=== PATIENT | female | born 1975 | race Caucasian/White ===

== ENCOUNTER 2017-01-20 09:57 | Emergency (ER) | payer OTHER ==
[~2017-01-20] VITALS: Ht 170.2 cm; Wt 92.0 kg
[~2017-01-20 09:57] MED LIST: ALPR0.5T6 PO; AMLO5TAB2 PO; ESCI20TA PO
[2017-01-20 09:59] VITALS: BP 107/63
[2017-01-20] MEDS ORDERED: ZIPRASIDONE 20 MG INJ IM ONE ×2 (10:50→11:00)
[2017-01-20 11:22] LABS: DAU SCREEN DISCLAIMER
[2017-01-20 11:28] LABS: ASPARTATE AMINO TRANSFERASE 105 U/L (15-37); BLOOD UREA NITROGEN 11 mg/dL (7-18)
[2017-01-20 11:33] LABS: ACETAMINOPHEN < 2 mcg/mL (10-30)
== END 2017-01-20 13:10 | disposition home or self-care (01) ==
LOC: ED 11:27
DX: G31.2 Degeneration of nervous system due to alcohol (principal); I10 Essential (primary) hypertension
CPT/HCPCS: 36415; 80053; 80307; 80329; 82550; 85025; 93005; 96372; 99285; J3486; G0480

== ENCOUNTER 2018-07-11 10:24 | Inpatient (IN) | payer OTHER ==
[~2018-07-11] VITALS: Ht 170.2 cm; Wt 109.6 kg
[~2018-07-11 10:24] MED LIST changes: +AMLO-150 PO; -AMLO5TAB2 PO
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
[2018-07-11] MEDS ORDERED: SODIUM CHLORIDE 0.9% 1,000 ML IV ONE (10:37)
[2018-07-11] MEDS ORDERED: PLEASE ENTER HEIGHT AND WEIGHT MC SCH (11:00)
--- NOTE | 2018-07-11 11:10 | NUR ---
PT REMOVED 22 GAUGE IV IN LEFT WRIST STARTED BY SHANTANU. NIRMALA QUIJANO PAC AWARE.
[2018-07-11 11:14] LABS: BASOPHILS # (AUTO) 0.04 x10^3/uL (0-0.1); BASOPHILS % (AUTO) 1 % (0-1); EOSINOPHILS # (AUTO) 0.11 x10^3/uL (0-0.4); EOSINOPHILS % (AUTO) 2 % (1-7); LYMPHOCYTES # (AUTO) 1.97 x10^3/uL (1-3.4); LYMPHOCYTES % (AUTO) 30 % (22-44); MD NO; MEAN CORPUSCULAR HEMOGLOBIN 34.9 pg (27.0-34.8); MEAN CORPUSCULAR HGB CONC 33.5 g/dL (32.4-35.8); MEAN CORPUSCULAR VOLUME 104.2 fL (80-100); MEAN PLATELET VOLUME 8.2 fL (7.4-10.4); MONOCYTES % (AUTO) 6 % (2-9); NEUTROPHILS # (AUTO) 4.04 x10^3/uL (1.8-6.8); NEUTROPHILS % (AUTO) 62 % (42-75); PLATELET COUNT 199 x10^3/uL (130-400); RED BLOOD COUNT 4.25 x10^6/uL (3.82-5.3); RED CELL DISTRIBUTION WIDTH 12.8 % (9.6-15.2)
[2018-07-11 11:27] LABS: ALBUMIN 3.6 g/dL (3.4-5.0); ANION GAP 9 mmol/L (5-15); CALCIUM 8.2 mg/dL (8.5-10.1); CHLORIDE 107 mmol/L (98-107)
[2018-07-11 11:29] LABS: SALICYLATE LEVEL < 1.7 mg/dL (2.8-20.0)
[2018-07-11 11:30] LABS: ALANINE AMINOTRANSFERASE 61 U/L (12-78); ALKALINE PHOSPHATASE 146 U/L (45-117); BILIRUBIN,TOTAL 0.6 mg/dL (0.2-1.0); CREATININE 0.62 mg/dL (0.55-1.02); TOTAL PROTEIN 7.5 g/dL (6.4-8.2)
[2018-07-11] MEDS ORDERED: ONDANSETRON ODT 4 MG PO ONE (11:30)
[2018-07-11 11:31] LABS: ACETAMINOPHEN < 2 mcg/mL (10-30)
[2018-07-11] MEDS ORDERED: ONDANSETRON ODT 4 MG ONE (11:33)
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
--- NOTE | 2018-07-11 12:57 | NUR ---
pt resting in bed. continues to remove monitoring equipment. pt redirected and reoriented multiple times. monitoring equipment replaced. vss. will continue to monitor.
--- NOTE | 2018-07-11 13:51 | NUR ---
PT REQUESTING MEDICATION TO HELP WITH SLEEP. MD AWARE. NO ORDERS RECEIVED. WARM BLANKED PROVIDED. LIGHTS DIMMED. VSS.
[2018-07-11 15:17] LABS: AMPHETAMINE SCREEN, URINE Negative (Negative); BARBITURATE SCREEN, URINE Negative (Negative); BENZODIAZEPINE SCREEN, URINE Positive (Negative); CANNABINOID SCREEN, URINE Negative (Negative); COCAINE SCREEN, URINE Negative (Negative); METHADONE SCREEN, URINE Negative (Negative); OPIATE SCREEN, URINE Negative (Negative)
--- NOTE | 2018-07-11 16:10 | NUR ---
unsuccessful o2 weaning trial. pt began to desat to <85% while asleep. o2 replaced. vss. edmd aware. will continue to monitor.
[2018-07-11] MEDS ORDERED: OMEPRAZOLE PO (16:17)
[2018-07-11] MEDS ORDERED: SUCR1ORA5 PO (16:17)
[2018-07-11] MEDS ORDERED: OMEPRA (16:17)
[2018-07-11] MEDS ORDERED: SODIUM CHLORIDE 0.9%, 500ML IVBOLUS ONE (16:30)
[2018-07-11] MEDS ORDERED: BISACODYL 10 MG SUPP PR PRN (17:30)
[2018-07-11] MEDS ORDERED: ONDANSETRON 2MG/ML, 2ML IVPush PRN (17:30)
[2018-07-11] MEDS ORDERED: POLYETHYLENE GLYCOL 17 GM PACKET PO PRN (17:30)
[2018-07-11] MEDS ORDERED: hydrALAzine 20 MG/ML, 1ML IVPush PRN (17:30)
[2018-07-11] MEDS ORDERED: DOCUSATE 100 MG CAPSULE PO PRN (17:30)
--- NOTE | 2018-07-11 17:30 | NUR ---
[facility] STATES SITTER WILL BE AVAILABLE AT 1815 TO GO WITH PATIENT UP TO CARD TELE FLOOR
--- NOTE | 2018-07-11 17:36 | NUR ---
BREAK RN: PT CURRENTLY SLEEPING ON [employer]. NAD NOTED. PT AWAKENS EASILY TO NOISE. PT AWARE THAT WE ARE WAITING FOR ADMISSION. PT DENIES PAIN/NEEDS AT THIS TIME. PT ON CONT BP, CARDIAC AND O2 MONITORS. CALL LIGHT WITHIN REACH. WILL CONT TO MONITOR PT.
--- NOTE | 2018-07-11 18:30 | NUR ---
PT RESTING IN GURNEY IN NAD. VSS. SITTER OBSERVING PT. VISIBLE RISE AND FALL OF CHEST OBSERVED.
[2018-07-11 19:44] VITALS: BP 106/71
--- NOTE | 2018-07-11 20:01 | NUR ---
PT BELONGINGS TAKEN OUT OF ER SECURITY LOCKER AND HAND DELIVERED BY THIS RN TO MALI WYMAN ON TELEMETRY.
[2018-07-11] MEDS: SODIUM CHLORIDE 0.9% 1,000 ML IV SCH (21:44)
[2018-07-11] MEDS: ENOXAPARIN 40 MG/0.4 ML SQ SCH (21:52)
[2018-07-12 01:10] VITALS: BP 104/69
[2018-07-12] MEDS ORDERED: LORazepam 0.5MG TABLET PO PRN (03:00)
[2018-07-12] MEDS ORDERED: LORazepam 2 MG/ML, 1ML IV PRN ×5 (03:00)
[2018-07-12] MEDS ORDERED: LORazepam 1MG TABLET PO PRN ×4 (03:00)
[2018-07-12 05:14] LABS: BASOPHILS # (AUTO) 0.19 x10^3/uL (0-0.1); BASOPHILS % (AUTO) 3 % (0-1); EOSINOPHILS # (AUTO) 0.15 x10^3/uL (0-0.4); EOSINOPHILS % (AUTO) 2 % (1-7); LYMPHOCYTES # (AUTO) 2.29 x10^3/uL (1-3.4); LYMPHOCYTES % (AUTO) 33 % (22-44); MD NO; MEAN CORPUSCULAR HEMOGLOBIN 35.3 pg (27.0-34.8); MEAN CORPUSCULAR HGB CONC 33.8 g/dL (32.4-35.8); MEAN CORPUSCULAR VOLUME 104.6 fL (80-100); MEAN PLATELET VOLUME 8.7 fL (7.4-10.4); MONOCYTES # (AUTO) 0.55 x10^3/uL (0.2-0.8); MONOCYTES % (AUTO) 8 % (2-9); NEUTROPHILS # (AUTO) 3.75 x10^3/uL (1.8-6.8); NEUTROPHILS % (AUTO) 54 % (42-75); PLATELET COUNT 172 x10^3/uL (130-400); RED BLOOD COUNT 3.91 x10^6/uL (3.82-5.3); RED CELL DISTRIBUTION WIDTH 13.1 % (9.6-15.2)
[2018-07-12 05:19] LABS: ALBUMIN 3.1 g/dL (3.4-5.0); ANION GAP 7 mmol/L (5-15); CALCIUM 7.7 mg/dL (8.5-10.1); CHLORIDE 108 mmol/L (98-107)
[2018-07-12 05:23] LABS: ALANINE AMINOTRANSFERASE 50 U/L (12-78); ALKALINE PHOSPHATASE 126 U/L (45-117); BILIRUBIN,TOTAL 0.8 mg/dL (0.2-1.0); CREATININE 0.63 mg/dL (0.55-1.02); TOTAL PROTEIN 6.4 g/dL (6.4-8.2)
[2018-07-12] MEDS: SODIUM CHLORIDE 0.9% 1,000 ML IV SCH ×2 (07:13→18:21)
[2018-07-12 08:00] VITALS: BP 102/68
[2018-07-12] MEDS: SUCRALFATE 1 GM/10 ML UDC PO SCH (08:54)
[2018-07-12] MEDS: AMLODIPINE 5 MG TABLET PO SCH (08:55)
[2018-07-12] MEDS: CITALOPRAM 20 MG TABLET PO SCH (08:56)
[2018-07-12 13:56] LABS: HEMOGLOBIN A1C 4.9 % (4.2-6.3)
[2018-07-12 15:11] VITALS: BP 101/68
[2018-07-12] MEDS: ENOXAPARIN 40 MG/0.4 ML SQ SCH (17:06)
[2018-07-12] MEDS: LORazepam 2 MG/ML, 1ML IVPush PRN ×2 (18:19→21:14)
[2018-07-12 20:02] VITALS: BP 101/64
[2018-07-12] MEDS: THIAMINE 100MG TABLET PO SCH (21:14)
[2018-07-13 01:42] VITALS: BP 102/66
[2018-07-13] MEDS: LORazepam 2 MG/ML, 1ML IVPush PRN ×2 (03:16→04:25)
[2018-07-13] MEDS: SODIUM CHLORIDE 0.9% 1,000 ML IV SCH (04:28)
[2018-07-13 05:32] LABS: BASOPHILS # (AUTO) 0.04 x10^3/uL (0-0.1); BASOPHILS % (AUTO) 1 % (0-1); EOSINOPHILS # (AUTO) 0.13 x10^3/uL (0-0.4); EOSINOPHILS % (AUTO) 2 % (1-7); LYMPHOCYTES # (AUTO) 1.78 x10^3/uL (1-3.4); LYMPHOCYTES % (AUTO) 32 % (22-44); MD NO; MEAN CORPUSCULAR HEMOGLOBIN 35.5 pg (27.0-34.8); MEAN CORPUSCULAR HGB CONC 33.9 g/dL (32.4-35.8); MEAN CORPUSCULAR VOLUME 104.7 fL (80-100); MEAN PLATELET VOLUME 8.6 fL (7.4-10.4); MONOCYTES # (AUTO) 0.43 x10^3/uL (0.2-0.8); MONOCYTES % (AUTO) 8 % (2-9); NEUTROPHILS # (AUTO) 3.29 x10^3/uL (1.8-6.8); NEUTROPHILS % (AUTO) 58 % (42-75); PLATELET COUNT 142 x10^3/uL (130-400); RED BLOOD COUNT 3.87 x10^6/uL (3.82-5.3); RED CELL DISTRIBUTION WIDTH 12.7 % (9.6-15.2)
[2018-07-13 05:44] LABS: CHLORIDE 109 mmol/L (98-107)
[2018-07-13 05:49] LABS: ALANINE AMINOTRANSFERASE 52 U/L (12-78); ALKALINE PHOSPHATASE 119 U/L (45-117); ANION GAP 8 mmol/L (5-15); BILIRUBIN,TOTAL 1.1 mg/dL (0.2-1.0); CREATININE 0.53 mg/dL (0.55-1.02); TOTAL PROTEIN 6.3 g/dL (6.4-8.2)
[2018-07-13 07:10] VITALS: BP 106/71
[2018-07-13] MEDS: AMLODIPINE 5 MG TABLET PO SCH (09:00)
[2018-07-13] MEDS: SUCRALFATE 1 GM/10 ML UDC PO SCH (09:00)
[2018-07-13] MEDS: ACETAMINOPHEN 325 MG TABLET PO PRN (10:35)
[2018-07-13] MEDS: CITALOPRAM 20 MG TABLET PO SCH (10:35)
[2018-07-13] MEDS: THIAMINE 100MG TABLET PO SCH ×2 (10:36→22:02)
[2018-07-13] MEDS: MULTIVITAMIN 1 TABLET PO SCH (10:36)
[2018-07-13] MEDS ORDERED: OMEPRAZOLE 20 MG CAPSULE.DR PO ONE (12:30)
[2018-07-13 14:00] VITALS: BP 99/65
[2018-07-13] MEDS: ENOXAPARIN 40 MG/0.4 ML SQ SCH (17:30)
[2018-07-13 20:22] VITALS: BP 102/68
[2018-07-13] MEDS: MELATONIN 5 MG TABLET PO SCH (22:02)
[2018-07-13] MEDS: OMEPRAZOLE 20 MG CAPSULE.DR PO SCH (22:02)
[2018-07-14 01:05] VITALS: BP 120/81
[2018-07-14] MEDS: ACETAMINOPHEN 325 MG TABLET PO PRN ×2 (04:59→20:29)
[2018-07-14] MEDS: OMEPRAZOLE 20 MG CAPSULE.DR PO SCH ×2 (04:59→20:16)
[2018-07-14 07:23] VITALS: BP 139/83
[2018-07-14] MEDS: THIAMINE 100MG TABLET PO SCH ×2 (09:04→20:16)
[2018-07-14] MEDS: CITALOPRAM 20 MG TABLET PO SCH (09:04)
[2018-07-14] MEDS: MULTIVITAMIN 1 TABLET PO SCH (09:04)
[2018-07-14] MEDS: AMLODIPINE 5 MG TABLET PO SCH (09:04)
[2018-07-14 14:29] VITALS: BP 117/75
[2018-07-14] MEDS: ENOXAPARIN 40 MG/0.4 ML SQ SCH (17:30)
[2018-07-14 19:35] VITALS: BP 127/83
[2018-07-14] MEDS: MELATONIN 5 MG TABLET PO SCH (20:16)
[2018-07-15 02:34] VITALS: BP 106/67
[2018-07-15] MEDS: OMEPRAZOLE 20 MG CAPSULE.DR PO SCH (05:31)
[2018-07-15] MEDS: ACETAMINOPHEN 325 MG TABLET PO PRN (05:31)
[2018-07-15 06:43] VITALS: BP 126/76
[2018-07-15] MEDS: CITALOPRAM 20 MG TABLET PO SCH (08:46)
[2018-07-15] MEDS: MULTIVITAMIN 1 TABLET PO SCH (08:46)
[2018-07-15] MEDS: THIAMINE 100MG TABLET PO SCH (08:46)
[2018-07-15] MEDS: AMLODIPINE 5 MG TABLET PO SCH (08:47)
[2018-07-15 13:29] VITALS: BP 121/79
== END 2018-07-15 14:05 | DRG 917 ==
LOC: ED 12:38 → EDIP 17:09 → 5SO 19:39 → 3NE 07-12 17:41
PROVIDERS: ADMIT Internal Medicine; ATTEND Internal Medicine
PROC: 5A1935Z Respiratory Ventilation, Less than 24 Consecutive Hours (ICD-10-PCS; principal; 2018-07-11)
DX: T42.4X2A Poisoning by benzodiazepines, intentional self-harm, initial encounter (principal); J96.00 Acute respiratory failure, unspecified whether with hypoxia or hypercapnia; F10.239 Alcohol dependence with withdrawal, unspecified; D75.89 Other specified diseases of blood and blood-forming organs; E11.65 Type 2 diabetes mellitus with hyperglycemia; F32.9 Major depressive disorder, single episode, unspecified; F41.9 Anxiety disorder, unspecified; I11.9 Hypertensive heart disease without heart failure; Z82.49 Family history of ischemic heart disease and other diseases of the circulatory system
CPT/HCPCS: 36415; 80053; 80307; 80329; 81025; 83036; 83735; 84100; 85025; 93005; 96360; G0378; J1650; Q0162; G0480; J2060; J7030; J7040

== ENCOUNTER 2018-07-15 14:05 | Inpatient (IN) | payer OTHER ==
[~2018-07-15] VITALS: Ht 170.2 cm; Wt 108.9 kg
[~2018-07-15 14:05] MED LIST changes: +OMEPRA; +OMEPRAZOLE PO; +SUCR1ORA5 PO
[2018-07-15] MEDS ORDERED: POLYETHYLENE GLYCOL 17 GM PACKET PO PRN (14:30)
[2018-07-15] MEDS ORDERED: BISACODYL 10 MG SUPP PR PRN (14:30)
[2018-07-15 16:00] VITALS: BP 121/69
[2018-07-15 16:26] LABS: HCT (SEDRATE) 46.4 % (34.6-47.8)
[2018-07-15 16:58] VITALS: BP 121/69
[2018-07-15 17:03] LABS: CHOL/HDL RATIO 5.2; CHOLESTEROL, TOTAL 241 mg/dL (140-239); FREE T4 (FREE THYROXINE) 1.27 ng/dL (0.76-1.46); HDL CHOL % 19 % (28-40); HDL CHOLESTEROL (DIRECT) 46 mg/dL (40-60); LDL CHOLESTEROL,CALCULATED 165 mg/dL (54-169); LDL/HDL RATIO 3.6 (0.5-3.0); TRIGLYCERIDES 151 mg/dL (50-200); VLDL CHOLESTEROL 30 mg/dL (0-25)
[2018-07-15 17:06] LABS: FOLATE LEVEL > 20.0 ng/mL (3.1-17.5)
[2018-07-15 19:45] VITALS: BP 121/82
[2018-07-15 20:21] LABS: CULTURE INDICATED? YES; MICROSCOPIC INDICATED
[2018-07-15] MEDS: ACETAMINOPHEN 325 MG TABLET PO PRN (21:46)
[2018-07-16 07:53] VITALS: BP 97/63
[2018-07-16] MEDS: SENNA/DOCUSATE TABLET PO SCH (09:51)
[2018-07-16] MEDS: ACETAMINOPHEN 325 MG TABLET PO PRN ×2 (12:47→21:24)
[2018-07-16 19:57] VITALS: BP 123/80
[2018-07-16] MEDS: OMEPRAZOLE 20 MG CAPSULE.DR PO SCH (21:00)
[2018-07-16] MEDS: DOXEPIN 25 MG CAPSULE PO SCH (21:24)
[2018-07-16] MEDS: ACAMPROSATE 333 MG TABLET.DR PO SCH (21:24)
[2018-07-16] MEDS: HYDROXYZINE PAMOATE 50MG CAP PO PRN (21:24)
[2018-07-17] MEDS: OMEPRAZOLE 20 MG CAPSULE.DR PO SCH (05:38)
[2018-07-17 07:25] VITALS: BP 101/65
[2018-07-17] MEDS: AMLODIPINE 10 MG TAB PO SCH (08:55)
[2018-07-17] MEDS: ACAMPROSATE 333 MG TABLET.DR PO SCH ×3 (08:55→20:55)
[2018-07-17] MEDS ORDERED: FLUOXETINE HCL 20 MG CAPSULE PO SCH (09:00)
[2018-07-17] MEDS: SENNA/DOCUSATE TABLET PO SCH (09:00)
[2018-07-17] MEDS ORDERED: ACAM333T7 PO (17:56)
[2018-07-17] MEDS ORDERED: DOXE25CA PO (17:56)
[2018-07-17 19:28] VITALS: BP 99/66
[2018-07-17] MEDS: DOXEPIN 25 MG CAPSULE PO SCH (20:55)
[2018-07-17] MEDS: HYDROXYZINE PAMOATE 50MG CAP PO PRN (20:55)
[2018-07-18] MEDS: OMEPRAZOLE 20 MG CAPSULE.DR PO SCH (05:34)
[2018-07-18 07:13] VITALS: BP 88/58
[2018-07-18 08:34] VITALS: BP 91/66
[2018-07-18] MEDS: ACAMPROSATE 333 MG TABLET.DR PO SCH (08:36)
[2018-07-18] MEDS: AMLODIPINE 10 MG TAB PO SCH (08:36)
[2018-07-18] MEDS: SENNA/DOCUSATE TABLET PO SCH (08:36)
[2018-07-20] MEDS ORDERED: ACAMPROSATE 333 MG TABLET.DR PO SCH (09:00)
== END 2018-07-18 12:47 | disposition home or self-care (01) | DRG 918 ==
LOC: 3E 15:20
PROVIDERS: ADMIT Psychiatry & Neurology Psychosomatic Medicine; ATTEND Psychiatry & Neurology Psychosomatic Medicine
DX: T42.4X2A Poisoning by benzodiazepines, intentional self-harm, initial encounter (principal); F33.2 Major depressive disorder, recurrent severe without psychotic features; E11.9 Type 2 diabetes mellitus without complications; I11.9 Hypertensive heart disease without heart failure; F10.10 Alcohol abuse, uncomplicated; F41.1 Generalized anxiety disorder; G47.00 Insomnia, unspecified; K21.9 Gastro-esophageal reflux disease without esophagitis; Y92.89 Other specified places as the place of occurrence of the external cause; Z91.018 Allergy to other foods
CPT/HCPCS: 36415; 71045; 80061; 81001; 82140; 82607; 82746; 84439; 84443; 85651; 86592; 87086; 93005

== ENCOUNTER 2018-08-15 15:16 | Emergency (ER) | payer OTHER ==
[~2018-08-15] VITALS: Ht 170.2 cm; Wt 106.8 kg
[~2018-08-15 15:16] MED LIST changes: +ACAM333T7 PO; +DOXE25CA PO
--- NOTE | 2018-08-15 15:47 | NUR ---
PT AMBULATORY TO ROOM FROM LOBBY
[2018-08-15] MEDS ORDERED: SODIUM CHLORIDE FLUSH 10ML SYR IVF ONE (16:00)
[2018-08-15] MEDS ORDERED: QUET25TA5 PO (16:18)
[2018-08-15] MEDS ORDERED: HYDR10TA4 PO (16:20)
[2018-08-15] MEDS ORDERED: KETOROLAC 30 MG/1 ML ONE (16:57)
[2018-08-15] MEDS ORDERED: KETOROLAC 30 MG/1 ML IM ONE (17:00)
--- NOTE | 2018-08-15 17:00 | NUR ---
PT TO CT VIA [facility].
[2018-08-15 17:03] LABS: BASOPHILS # (AUTO) 0.07 x10^3/uL (0-0.1); BASOPHILS % (AUTO) 1 % (0-1); EOSINOPHILS # (AUTO) 0.06 x10^3/uL (0-0.4); EOSINOPHILS % (AUTO) 1 % (1-7); LYMPHOCYTES # (AUTO) 1.82 x10^3/uL (1-3.4); LYMPHOCYTES % (AUTO) 34 % (22-44); MD NO; MEAN CORPUSCULAR HEMOGLOBIN 33.1 pg (27.0-34.8); MEAN CORPUSCULAR VOLUME 100.5 fL (80-100); MEAN PLATELET VOLUME 9.9 fL (7.4-10.4); MONOCYTES # (AUTO) 0.32 x10^3/uL (0.2-0.8); MONOCYTES % (AUTO) 6 % (2-9); NEUTROPHILS % (AUTO) 58 % (42-75); PLATELET COUNT 156 x10^3/uL (130-400); RED BLOOD COUNT 4.25 x10^6/uL (3.82-5.3); RED CELL DISTRIBUTION WIDTH 12.3 % (9.6-15.2)
[2018-08-15 17:04] LABS: HCT (SEDRATE) 42.7 % (34.6-47.8)
[2018-08-15 17:12] LABS: ALBUMIN 3.4 g/dL (3.4-5.0); ANION GAP 6 mmol/L (5-15); CALCIUM 8.6 mg/dL (8.5-10.1); CHLORIDE 108 mmol/L (98-107); CREATININE 0.67 mg/dL (0.55-1.02)
--- NOTE | 2018-08-15 17:47 | NUR ---
TASK RN: PT SITTING UP IN GURNEY W/ EYES CLOSED. NAD NOTED. PT UPDATED TO POC (RECHECK/DISPO) AND DEMONSTRATES UNDERSTANDING.
[2018-08-15] MEDS ORDERED: METOCLOPRAMIDE 10MG TABLET ONE (18:14)
[2018-08-15] MEDS ORDERED: METOCLOPRAMIDE 5 MG/ML, 2ML IVPush ONE (18:30)
[2018-08-15] MEDS ORDERED: PROMETHAZINE 25 MG/ML, 1ML ONE (18:36)
[2018-08-15 18:42] VITALS: BP 121/71
[2018-08-15] MEDS ORDERED: PROMETHAZINE 25 MG/ML, 1ML IM ONE (19:00)
--- NOTE | 2018-08-15 19:34 | NUR ---
Patient/Caregiver given discharge instructions and they have confirmed that they understand the instructions. Patient ambulatory with steady gait.
== END 2018-08-15 19:35 | disposition home or self-care (01) ==
LOC: ED 18:33
DX: G44.52 New daily persistent headache (NDPH) (principal); G89.29 Other chronic pain; I10 Essential (primary) hypertension
CPT/HCPCS: 36415; 70450; 80048; 82040; 85025; 85651; 96372; 99284; J1885; J2550

== ENCOUNTER 2018-09-05 17:44 | Observation (INO) | payer OTHER ==
[~2018-09-05] VITALS: Ht 170.2 cm; Wt 108.0 kg
[~2018-09-05 17:44] MED LIST changes: +HYDR10TA4 PO; +QUET25TA5 PO
--- NOTE | 2018-09-05 17:45 | NUR ---
BIB [facility], FAMILY/FRIENDS CALLED HANNAH SILVERIO PT WAS TEXTING THEM SI/SA THREATS, UPON ARRIVAL SHANTANU WITNESSED PT TAKE A "HANDFUL" OF PILLS AND SHE STATED SHE TOOK A "BUNCH" OF LEXARO AND DOXEPIN, PT STATES HERE SHE TOOK ASA, LEXAPRO, ETOH, THEN STATES SHE DID NOT TAKE ANYTING. ALL BELONGINGS REMOVED AND 1 BAG PLACED IN PSYCH LOCKER. PT UNABLE TO URINATE AT THIS TIME. SITTER AT BEDSIDE. PT VERBALIZING WANTING TO LEAVE. PT EDUCATED SHE IS ON LEGAL HOLD AND WE WILL NEED TO KEEP HER HERE. VERBALIZES UNDERSTANDING. MD AT BEDSIDE
[2018-09-05] MEDS ORDERED: SODIUM CHLORIDE FLUSH 10ML SYR IVF ONE (18:30)
[2018-09-05 18:42] LABS: BASOPHILS # (AUTO) 0.05 x10^3/uL (0-0.1); BASOPHILS % (AUTO) 1 % (0-1); EOSINOPHILS # (AUTO) 0.06 x10^3/uL (0-0.4); EOSINOPHILS % (AUTO) 1 % (1-7); LYMPHOCYTES # (AUTO) 2.39 x10^3/uL (1-3.4); LYMPHOCYTES % (AUTO) 47 % (22-44); MD NO; MEAN CORPUSCULAR HEMOGLOBIN 34.2 pg (27.0-34.8); MEAN CORPUSCULAR VOLUME 100.6 fL (80-100); MEAN PLATELET VOLUME 7.2 fL (7.4-10.4); MONOCYTES # (AUTO) 0.36 x10^3/uL (0.2-0.8); MONOCYTES % (AUTO) 7 % (2-9); NEUTROPHILS # (AUTO) 2.23 x10^3/uL (1.8-6.8); NEUTROPHILS % (AUTO) 44 % (42-75); PLATELET COUNT 155 x10^3/uL (130-400); RED BLOOD COUNT 4.49 x10^6/uL (3.82-5.3); RED CELL DISTRIBUTION WIDTH 14.1 % (9.6-15.2)
[2018-09-05 18:51] LABS: ALBUMIN 3.5 g/dL (3.4-5.0); ANION GAP 11 mmol/L (5-15); CALCIUM 8.3 mg/dL (8.5-10.1); CHLORIDE 106 mmol/L (98-107)
[2018-09-05 18:52] LABS: SALICYLATE LEVEL < 1.7 mg/dL (2.8-20.0)
[2018-09-05 18:57] LABS: ACETAMINOPHEN < 2 mcg/mL (10-30); ALANINE AMINOTRANSFERASE 42 U/L (12-78); ALKALINE PHOSPHATASE 144 U/L (45-117); BILIRUBIN,TOTAL 0.9 mg/dL (0.2-1.0); CREATININE 0.84 mg/dL (0.55-1.02); TOTAL PROTEIN 7.2 g/dL (6.4-8.2)
--- NOTE | 2018-09-05 19:45 | NUR ---
REPORT FROM DEANGELO WYMAN. PT GIVEN A MEAL TRAY. UA WALKED TO LAB. PT COMPLAINING OF HEARTBURN. AWARE AND WILL ORDER GI COCKTAIL. SITTER IN VIEW OF PT.
[2018-09-05] MEDS ORDERED: MAALOX/HYOSCYAMINE/LIDOCAINE 45 ML BTL ONE (19:49)
[2018-09-05 19:53] LABS: AMPHETAMINE SCREEN, URINE Negative (Negative); BARBITURATE SCREEN, URINE Negative (Negative); BENZODIAZEPINE SCREEN, URINE Positive (Negative); CANNABINOID SCREEN, URINE Negative (Negative); COCAINE SCREEN, URINE Negative (Negative); METHADONE SCREEN, URINE Negative (Negative); OPIATE SCREEN, URINE Negative (Negative)
[2018-09-05] MEDS ORDERED: MAALOX/HYOSCYAMINE/LIDOCAINE 45 ML BTL PO ONE (20:00)
--- NOTE | 2018-09-05 20:30 | NUR ---
PT MEDICATED AND IS SLEEPING IN NAD. SITTER IN VIEW OF PT.
--- NOTE | 2018-09-05 21:42 | NUR ---
PT RESTING WITH NO NEEDS AT THIS TIME. EVEN RISE AND FALL OF CHEST OBSERVED. SITTER IN VIEW OF PT
--- NOTE | 2018-09-05 22:34 | NUR ---
PT SLEEPING IN NAD. SITTER IN VIEW OF PT,
--- NOTE | 2018-09-05 23:07 | NUR ---
Katerine pinto in ED - 09/05/18 at 2331 by JULIANA pt up to the bathroom. vss. Pt rebreathalyzed 0.087
--- NOTE | 2018-09-05 23:31 | NUR ---
PT REBREATHALYZED 0.08. VSS. PT BACK TO BED. PT UPDATED ON POC. SITTER IN VIEW OF PT.
[2018-09-06] MEDS ORDERED: hydrOXyzine 10MG TABLET PO PRN (00:30)
--- NOTE | 2018-09-06 00:45 | NUR ---
PT ASSITED TO BARTHROOM AND GIVEN WATER. PT HAS NO NEEDS AT THIS TIME. SITTER IN VIEW OF PT.
[2018-09-06] MEDS: THIAMINE 200 MG, MVI ADULT 10 ML, FOLIC ACID 1 MG in D5%-0.9% NACL 1,000 ML IV SCH (02:28)
--- NOTE | 2018-09-06 02:28 | NUR ---
FLUIDS RUNNING. PT HAS NO OTHER NEEDS AT THIS TIME. SITER IN VIEW OF PT
[2018-09-06] MEDS ORDERED: LORazepam 2 MG/ML, 1ML IV PRN ×3 (03:00)
[2018-09-06] MEDS ORDERED: CHLORDIAZEPOXIDE 25 MG CAPSULE ONE (03:47)
[2018-09-06] MEDS: CHLORDIAZEPOXIDE 25 MG CAPSULE PO SCH ×3 (03:50→19:20)
--- NOTE | 2018-09-06 03:51 | NUR ---
PT MEDICATED. VSS. PT ASSESSED FOR CIWA. ASSESSMENT CHARTED. PT NOW SLEEPING. SITTER IN VIEW OF PT.
--- NOTE | 2018-09-06 05:10 | NUR ---
REPORT TO EARNESTINE WYMAN.
[2018-09-06 05:36] VITALS: BP 114/77
[2018-09-06] MEDS: LORazepam 2 MG/ML, 1ML IV PRN ×3 (06:17→12:48)
[2018-09-06] MEDS: OMEPRAZOLE 20 MG CAPSULE.DR PO SCH ×3 (06:17→16:58)
[2018-09-06 07:56] LABS: BASOPHILS # (AUTO) 0.08 x10^3/uL (0-0.1); BASOPHILS % (AUTO) 1 % (0-1); EOSINOPHILS # (AUTO) 0.05 x10^3/uL (0-0.4); EOSINOPHILS % (AUTO) 1 % (1-7); LYMPHOCYTES % (AUTO) 33 % (22-44); MD NO; MEAN CORPUSCULAR HEMOGLOBIN 33.6 pg (27.0-34.8); MEAN CORPUSCULAR HGB CONC 33.4 g/dL (32.4-35.8); MEAN CORPUSCULAR VOLUME 100.5 fL (80-100); MEAN PLATELET VOLUME 7.3 fL (7.4-10.4); MONOCYTES # (AUTO) 0.48 x10^3/uL (0.2-0.8); MONOCYTES % (AUTO) 8 % (2-9); NEUTROPHILS # (AUTO) 3.23 x10^3/uL (1.8-6.8); NEUTROPHILS % (AUTO) 56 % (42-75); PLATELET COUNT 135 x10^3/uL (130-400); RED BLOOD COUNT 4.14 x10^6/uL (3.82-5.3); RED CELL DISTRIBUTION WIDTH 14.8 % (9.6-15.2)
[2018-09-06 08:06] LABS: ALBUMIN 3.2 g/dL (3.4-5.0); ANION GAP 6 mmol/L (5-15); CALCIUM 7.9 mg/dL (8.5-10.1); CHLORIDE 107 mmol/L (98-107)
[2018-09-06 08:11] LABS: ALANINE AMINOTRANSFERASE 36 U/L (12-78); ALKALINE PHOSPHATASE 131 U/L (45-117); BILIRUBIN,TOTAL 1.1 mg/dL (0.2-1.0); CREATININE 0.64 mg/dL (0.55-1.02); TOTAL PROTEIN 6.4 g/dL (6.4-8.2)
[2018-09-06] MEDS: AMLODIPINE 5 MG TABLET PO SCH (08:25)
[2018-09-06] MEDS: CITALOPRAM 20 MG TABLET PO SCH (08:26)
[2018-09-06 08:57] VITALS: BP 114/77
[2018-09-06] MEDS ORDERED: CHLORDIAZEPOXIDE 25 MG CAPSULE PO ONE (11:30)
[2018-09-06 12:02] VITALS: BP 110/73
[2018-09-06 18:36] VITALS: BP 117/79
[2018-09-07] MEDS: LORazepam 2 MG/ML, 1ML IV PRN ×4 (01:17→21:17)
[2018-09-07 02:36] VITALS: BP 107/73
[2018-09-07] MEDS: THIAMINE 200 MG, MVI ADULT 10 ML, FOLIC ACID 1 MG in D5%-0.9% NACL 1,000 ML IV SCH (02:39)
[2018-09-07] MEDS: CHLORDIAZEPOXIDE 25 MG CAPSULE PO SCH ×3 (02:39→18:32)
[2018-09-07 05:10] LABS: ALBUMIN 3.2 g/dL (3.4-5.0); ANION GAP 5 mmol/L (5-15); CALCIUM 8.2 mg/dL (8.5-10.1); CHLORIDE 108 mmol/L (98-107)
[2018-09-07 05:22] LABS: BASOPHILS # (AUTO) 0.03 x10^3/uL (0-0.1); BASOPHILS % (AUTO) 1 % (0-1); EOSINOPHILS # (AUTO) 0.12 x10^3/uL (0-0.4); EOSINOPHILS % (AUTO) 3 % (1-7); LYMPHOCYTES # (AUTO) 1.61 x10^3/uL (1-3.4); LYMPHOCYTES % (AUTO) 39 % (22-44); MD NO; MEAN CORPUSCULAR HEMOGLOBIN 34.2 pg (27.0-34.8); MEAN CORPUSCULAR HGB CONC 33.9 g/dL (32.4-35.8); MEAN PLATELET VOLUME 7.8 fL (7.4-10.4); MONOCYTES # (AUTO) 0.36 x10^3/uL (0.2-0.8); MONOCYTES % (AUTO) 9 % (2-9); NEUTROPHILS # (AUTO) 2.04 x10^3/uL (1.8-6.8); NEUTROPHILS % (AUTO) 49 % (42-75); PLATELET COUNT 122 x10^3/uL (130-400); RED BLOOD COUNT 4.18 x10^6/uL (3.82-5.3); RED CELL DISTRIBUTION WIDTH 13.9 % (9.6-15.2)
[2018-09-07 05:39] LABS: ALANINE AMINOTRANSFERASE 28 U/L (12-78); ALKALINE PHOSPHATASE 119 U/L (45-117); BILIRUBIN,TOTAL 1.5 mg/dL (0.2-1.0); CREATININE 0.65 mg/dL (0.55-1.02); TOTAL PROTEIN 6.2 g/dL (6.4-8.2)
[2018-09-07 07:04] VITALS: BP 125/83
[2018-09-07] MEDS ORDERED: THIAMINE 100 MG in DEXTROSE 5% 50 ML IVPB SCH (09:00)
[2018-09-07] MEDS: THIAMINE 100MG TABLET PO SCH (10:30)
[2018-09-07] MEDS: OMEPRAZOLE 20 MG CAPSULE.DR PO SCH ×3 (10:30→17:39)
[2018-09-07] MEDS: AMLODIPINE 5 MG TABLET PO SCH (10:30)
[2018-09-07] MEDS: ESCITALOPRAM 10MG TABLET PO SCH (10:30)
[2018-09-07 12:00] VITALS: BP 124/87
[2018-09-07] MEDS: ACETAMINOPHEN 325 MG TABLET PO PRN (17:39)
[2018-09-07 18:35] VITALS: BP 118/79
[2018-09-08 01:39] VITALS: BP 110/73
[2018-09-08] MEDS: CHLORDIAZEPOXIDE 25 MG CAPSULE PO SCH ×3 (02:51→21:54)
[2018-09-08] MEDS: LORazepam 2 MG/ML, 1ML IV PRN (02:51)
[2018-09-08] MEDS: THIAMINE 200 MG, MVI ADULT 10 ML, FOLIC ACID 1 MG in D5%-0.9% NACL 1,000 ML IV SCH (02:51)
[2018-09-08 04:30] LABS: BASOPHILS # (AUTO) 0.05 x10^3/uL (0-0.1); BASOPHILS % (AUTO) 1 % (0-1); EOSINOPHILS # (AUTO) 0.12 x10^3/uL (0-0.4); EOSINOPHILS % (AUTO) 3 % (1-7); LYMPHOCYTES # (AUTO) 1.59 x10^3/uL (1-3.4); LYMPHOCYTES % (AUTO) 37 % (22-44); MD NO; MEAN CORPUSCULAR HEMOGLOBIN 34.5 pg (27.0-34.8); MEAN CORPUSCULAR HGB CONC 34.3 g/dL (32.4-35.8); MEAN CORPUSCULAR VOLUME 100.3 fL (80-100); MEAN PLATELET VOLUME 7.5 fL (7.4-10.4); MONOCYTES # (AUTO) 0.36 x10^3/uL (0.2-0.8); MONOCYTES % (AUTO) 8 % (2-9); NEUTROPHILS # (AUTO) 2.23 x10^3/uL (1.8-6.8); NEUTROPHILS % (AUTO) 51 % (42-75); PLATELET COUNT 122 x10^3/uL (130-400); RED BLOOD COUNT 4.26 x10^6/uL (3.82-5.3); RED CELL DISTRIBUTION WIDTH 14.3 % (9.6-15.2)
[2018-09-08 04:40] LABS: CALCIUM 8.5 mg/dL (8.5-10.1); CHLORIDE 109 mmol/L (98-107)
[2018-09-08 04:46] LABS: ALANINE AMINOTRANSFERASE 30 U/L (12-78); ALBUMIN 3.4 g/dL (3.4-5.0); ALKALINE PHOSPHATASE 120 U/L (45-117); ANION GAP 6 mmol/L (5-15); BILIRUBIN,TOTAL 1.3 mg/dL (0.2-1.0); CREATININE 0.62 mg/dL (0.55-1.02); TOTAL PROTEIN 6.6 g/dL (6.4-8.2)
[2018-09-08 07:15] VITALS: BP 126/86
[2018-09-08] MEDS: AMLODIPINE 5 MG TABLET PO SCH (08:59)
[2018-09-08] MEDS: OMEPRAZOLE 20 MG CAPSULE.DR PO SCH ×3 (08:59→16:00)
[2018-09-08] MEDS: THIAMINE 100MG TABLET PO SCH (08:59)
[2018-09-08] MEDS: ESCITALOPRAM 10MG TABLET PO SCH (08:59)
[2018-09-08] MEDS ORDERED: MELATONIN 3 MG TABLET PO PRN (10:30)
[2018-09-08 17:51] VITALS: BP 115/80
[2018-09-08 18:45] VITALS: BP 105/71
[2018-09-09] MEDS: THIAMINE 200 MG, MVI ADULT 10 ML, FOLIC ACID 1 MG in D5%-0.9% NACL 1,000 ML IV SCH (02:56)
[2018-09-09 02:58] VITALS: BP 109/75
[2018-09-09 04:43] LABS: ALANINE AMINOTRANSFERASE 30 U/L (12-78); ALBUMIN 3.3 g/dL (3.4-5.0); ANION GAP 7 mmol/L (5-15); CALCIUM 8.8 mg/dL (8.5-10.1); CHLORIDE 109 mmol/L (98-107); CREATININE 0.65 mg/dL (0.55-1.02)
[2018-09-09 04:45] LABS: ALKALINE PHOSPHATASE 113 U/L (45-117); BILIRUBIN,TOTAL 1.6 mg/dL (0.2-1.0); TOTAL PROTEIN 6.5 g/dL (6.4-8.2)
[2018-09-09] MEDS: OMEPRAZOLE 20 MG CAPSULE.DR PO SCH ×3 (06:28→14:49)
[2018-09-09 06:40] VITALS: BP 112/77
[2018-09-09] MEDS: AMLODIPINE 5 MG TABLET PO SCH (07:58)
[2018-09-09] MEDS: THIAMINE 100MG TABLET PO SCH (07:58)
[2018-09-09] MEDS: CHLORDIAZEPOXIDE 10 MG CAPSULE PO SCH ×3 (07:58→20:24)
[2018-09-09] MEDS: ESCITALOPRAM 10MG TABLET PO SCH (07:59)
[2018-09-09] MEDS: CHLORDIAZEPOXIDE 25 MG CAPSULE PO SCH ×2 (07:59→21:00)
[2018-09-09] MEDS: ACETAMINOPHEN 325 MG TABLET PO PRN (10:18)
[2018-09-09] MEDS ORDERED: HYDR25CA PO (10:54)
[2018-09-09] MEDS ORDERED: NORT25CA78 PO (10:54)
[2018-09-09 12:10] VITALS: BP 116/79
[2018-09-09] MEDS: HYDROXYZINE PAMOATE 25MG CAP PO SCH ×2 (14:49→20:24)
[2018-09-09 14:54] LABS: BILIRUBIN, DIRECT 0.5 mg/dL (0.1-0.2)
[2018-09-09 14:56] LABS: BILIRUBIN,INDIRECT 1.2 mg/dL (0.0-2.0); BILIRUBIN,TOTAL 1.7 mg/dL (0.2-1.0)
[2018-09-09 18:53] VITALS: BP 108/76
[2018-09-09] MEDS: NORTRIPTYLINE 10 MG CAPSULE PO SCH (20:24)
[2018-09-09] MEDS: LORazepam 2 MG/ML, 1ML IV PRN (22:26)
[2018-09-10 02:24] VITALS: BP 93/62
[2018-09-10 04:47] LABS: ALBUMIN 3.4 g/dL (3.4-5.0); ANION GAP 6 mmol/L (5-15); CALCIUM 8.6 mg/dL (8.5-10.1); CHLORIDE 108 mmol/L (98-107)
[2018-09-10 04:51] LABS: ALANINE AMINOTRANSFERASE 29 U/L (12-78); ALKALINE PHOSPHATASE 109 U/L (45-117); BILIRUBIN,TOTAL 1.6 mg/dL (0.2-1.0); CREATININE 0.66 mg/dL (0.55-1.02); TOTAL PROTEIN 6.4 g/dL (6.4-8.2)
[2018-09-10 06:42] VITALS: BP 104/70
[2018-09-10] MEDS: ESCITALOPRAM 10MG TABLET PO SCH (08:30)
[2018-09-10] MEDS: AMLODIPINE 5 MG TABLET PO SCH (08:30)
[2018-09-10] MEDS: HYDROXYZINE PAMOATE 25MG CAP PO SCH ×3 (08:30→22:45)
[2018-09-10] MEDS: OMEPRAZOLE 20 MG CAPSULE.DR PO SCH ×3 (08:30→15:41)
[2018-09-10] MEDS: CHLORDIAZEPOXIDE 10 MG CAPSULE PO SCH ×3 (08:30→22:45)
[2018-09-10] MEDS: THIAMINE 100MG TABLET PO SCH (08:30)
[2018-09-10 12:15] VITALS: BP 104/70
[2018-09-10 19:05] VITALS: BP 110/72
[2018-09-10] MEDS: NORTRIPTYLINE 10 MG CAPSULE PO SCH (21:00)
[2018-09-11 01:13] VITALS: BP 105/69
[2018-09-11 05:13] LABS: BASOPHILS # (AUTO) 0.05 x10^3/uL (0-0.1); BASOPHILS % (AUTO) 1 % (0-1); EOSINOPHILS # (AUTO) 0.17 x10^3/uL (0-0.4); EOSINOPHILS % (AUTO) 3 % (1-7); LYMPHOCYTES # (AUTO) 1.76 x10^3/uL (1-3.4); LYMPHOCYTES % (AUTO) 32 % (22-44); MD NO; MEAN CORPUSCULAR HEMOGLOBIN 34.4 pg (27.0-34.8); MEAN CORPUSCULAR HGB CONC 34.2 g/dL (32.4-35.8); MEAN CORPUSCULAR VOLUME 100.5 fL (80-100); MEAN PLATELET VOLUME 7.8 fL (7.4-10.4); MONOCYTES # (AUTO) 0.48 x10^3/uL (0.2-0.8); MONOCYTES % (AUTO) 9 % (2-9); NEUTROPHILS # (AUTO) 3.13 x10^3/uL (1.8-6.8); NEUTROPHILS % (AUTO) 56 % (42-75); PLATELET COUNT 127 x10^3/uL (130-400); RED BLOOD COUNT 4.33 x10^6/uL (3.82-5.3); RED CELL DISTRIBUTION WIDTH 14.2 % (9.6-15.2)
[2018-09-11 05:29] LABS: ALBUMIN 3.2 g/dL (3.4-5.0); ANION GAP 7 mmol/L (5-15); CALCIUM 8.4 mg/dL (8.5-10.1); CHLORIDE 107 mmol/L (98-107)
[2018-09-11 05:33] LABS: ALANINE AMINOTRANSFERASE 31 U/L (12-78); ALKALINE PHOSPHATASE 112 U/L (45-117); BILIRUBIN,TOTAL 1.4 mg/dL (0.2-1.0); CREATININE 0.68 mg/dL (0.55-1.02); TOTAL PROTEIN 6.5 g/dL (6.4-8.2)
[2018-09-11] MEDS: OMEPRAZOLE 20 MG CAPSULE.DR PO SCH ×3 (06:17→15:48)
[2018-09-11 06:45] VITALS: BP 105/73
[2018-09-11] MEDS ORDERED: ENOXAPARIN 40 MG/0.4 ML SQ SCH (07:00)
[2018-09-11] MEDS: AMLODIPINE 5 MG TABLET PO SCH (10:19)
[2018-09-11] MEDS: CHLORDIAZEPOXIDE 10 MG CAPSULE PO SCH (10:19)
[2018-09-11] MEDS: THIAMINE 100MG TABLET PO SCH (10:20)
[2018-09-11] MEDS: HYDROXYZINE PAMOATE 25MG CAP PO SCH ×3 (10:20→21:32)
[2018-09-11] MEDS: ESCITALOPRAM 10MG TABLET PO SCH (10:21)
[2018-09-11 12:26] VITALS: BP 104/73
[2018-09-11 14:18] VITALS: BP 117/80
[2018-09-11 19:05] VITALS: BP 102/70
[2018-09-11] MEDS: NORTRIPTYLINE 10 MG CAPSULE PO SCH (21:32)
== END 2018-09-11 22:21 ==
LOC: ED 17:54 → EDIP 23:19 → 3NW 09-06 05:24 → 2N 09-11 14:05
PROVIDERS: ADMIT Internal Medicine; ATTEND Internal Medicine
DX: F10.129 Alcohol abuse with intoxication, unspecified (principal); R45.851 Suicidal ideations; R74.0 Nonspecific elevation of levels of transaminase and lactic acid dehydrogenase [LDH]; I10 Essential (primary) hypertension; K76.0 Fatty (change of) liver, not elsewhere classified; F33.2 Major depressive disorder, recurrent severe without psychotic features; D75.89 Other specified diseases of blood and blood-forming organs; F41.9 Anxiety disorder, unspecified; G47.00 Insomnia, unspecified; Z91.5 Personal history of self-harm
CPT/HCPCS: 36415; 76700; 80053; 80307; 80329; 82247; 82248; 82607; 83735; 84100; 84443; 84703; 85025; 93005; 96365; 96366; 96372; 96375; 96376; 99284; G0378; J1650; J2060; J3411; J7042; G0480

== ENCOUNTER 2018-10-03 21:06 | Emergency (ER) | payer OTHER ==
[~2018-10-03] VITALS: Ht 170.2 cm; Wt 103.7 kg
[~2018-10-03 21:06] MED LIST changes: +HYDR25CA PO; +NORT25CA78 PO
--- NOTE | 2018-10-03 22:19 | NUR ---
CALLED FOR ROOM, NO ANSWER.
[2018-10-03] MEDS ORDERED: DIPHENHYDRAMINE 50 MG/ML, 1ML IM ONE (23:30)
[2018-10-03] MEDS ORDERED: KETOROLAC 30 MG/1 ML IM ONE (23:30)
[2018-10-03] MEDS ORDERED: PROCHLORPERAZINE 5 MG/ML, 2ML IM ONE (23:30)
--- NOTE | 2018-10-03 23:38 | NUR ---
Pharmacy consulted for med administration, velvet to put benadryl and compazine in same syringe per pharamcy.
[2018-10-03] MEDS ORDERED: PROCHLORPERAZINE 5 MG/ML, 2ML ONE (23:39)
[2018-10-03] MEDS ORDERED: KETOROLAC 30 MG/1 ML ONE (23:39)
[2018-10-03] MEDS ORDERED: DIPHENHYDRAMINE 50 MG/ML, 1ML ONE (23:39)
[2018-10-04 00:25] VITALS: BP 108/66
--- NOTE | 2018-10-04 00:35 | NUR ---
Pt reports decreased pain from headache.
== END 2018-10-04 01:29 | disposition home or self-care (01) ==
LOC: ED 23:59
DX: G44.019 Episodic cluster headache, not intractable (principal); I10 Essential (primary) hypertension
CPT/HCPCS: 93005; 96372; 99283; J0780; J1200; J1885

== ENCOUNTER 2018-10-20 00:16 | Emergency (ER) | payer OTHER ==
[~2018-10-20] VITALS: Ht 170.2 cm; Wt 100.0 kg
--- NOTE | 2018-10-20 00:36 | NUR ---
first contact with pt. pt c/o frye with n/v/d for 24 hours. pt c/o right eye burning sensation/sinus congestion as well. pt's aox4. resps even and unlabored. bp/spo2 monitors in place. call light within reach.
[2018-10-20] MEDS ORDERED: KETOROLAC 30 MG/1 ML ONE (01:13)
[2018-10-20] MEDS ORDERED: PROCHLORPERAZINE 5 MG/ML, 2ML ONE (01:13)
[2018-10-20] MEDS ORDERED: DIPHENHYDRAMINE 25 MG CAPSULE ONE (01:14)
[2018-10-20] MEDS ORDERED: ACETAMINOPHEN 500 MG TABLET ONE (01:14)
[2018-10-20 01:28] LABS: BASOPHILS # (AUTO) 0.06 x10^3/uL (0-0.1); BASOPHILS % (AUTO) 1 % (0-1); EOSINOPHILS # (AUTO) 0.11 x10^3/uL (0-0.4); EOSINOPHILS % (AUTO) 2 % (1-7); LYMPHOCYTES # (AUTO) 2.34 x10^3/uL (1-3.4); LYMPHOCYTES % (AUTO) 44 % (22-44); MD NO; MEAN CORPUSCULAR HEMOGLOBIN 34.6 pg (27.0-34.8); MEAN CORPUSCULAR HGB CONC 33.9 g/dL (32.4-35.8); MEAN CORPUSCULAR VOLUME 101.9 fL (80-100); MEAN PLATELET VOLUME 8.6 fL (7.4-10.4); MONOCYTES # (AUTO) 0.37 x10^3/uL (0.2-0.8); MONOCYTES % (AUTO) 7 % (2-9); NEUTROPHILS % (AUTO) 46 % (42-75); PLATELET COUNT 131 x10^3/uL (130-400); RED CELL DISTRIBUTION WIDTH 15.6 % (9.6-15.2)
[2018-10-20] MEDS ORDERED: ACETAMINOPHEN 325 MG TABLET PO ONE (01:30)
[2018-10-20] MEDS ORDERED: DIPHENHYDRAMINE 25 MG CAPSULE PO ONE (01:30)
[2018-10-20] MEDS ORDERED: SODIUM CHLORIDE 0.9% 1,000ML IVBOLUS ONE (01:30)
[2018-10-20] MEDS ORDERED: LIDOCAINE 4% TOPICAL SOLUTION 50 ML NAS ONE (01:30)
[2018-10-20] MEDS ORDERED: PROCHLORPERAZINE 5 MG/ML, 2ML IVPush ONE (01:30)
[2018-10-20] MEDS ORDERED: KETOROLAC 30 MG/1 ML IVPush ONE (01:30)
[2018-10-20 01:32] LABS: ALBUMIN 3.8 g/dL (3.4-5.0); ANION GAP 8 mmol/L (5-15); CALCIUM 8.6 mg/dL (8.5-10.1); CHLORIDE 107 mmol/L (98-107); CREATININE 0.71 mg/dL (0.55-1.02)
--- NOTE | 2018-10-20 01:39 | NUR ---
pt medicated per emar. pt tolerated well. pt's aox4. resps even and unlabored.
--- NOTE | 2018-10-20 02:21 | NUR ---
LUNCH RN: Pt medicated per MAR. Pt tolerated meds well. IVF bolus complete.
--- NOTE | 2018-10-20 03:00 | NUR ---
edmd at bedside to explain all results at this time. awaiting dc.
[2018-10-20 03:13] VITALS: BP 123/69
--- NOTE | 2018-10-20 03:14 | NUR ---
pt given dc instructions and script. pt educated regarding dc medication. pt amb to dc with steady dait. pt's aox4. resps even and unlabored. no acute distress at dc.
== END 2018-10-20 03:15 | disposition home or self-care (01) ==
LOC: ED 01:43
DX: G44.019 Episodic cluster headache, not intractable (principal); I10 Essential (primary) hypertension
CPT/HCPCS: 36415; 80048; 82040; 85025; 96361; 96374; 96375; 99283; J0780; J1885; J7030; Q0163

== ENCOUNTER 2019-12-31 17:19 | Emergency (ER) | payer SELFPAY ==
[~2019-12-31] VITALS: Ht 170.2 cm; Wt 110.0 kg
[~2019-12-31 17:19] MED LIST changes: +HYDR-2995 PO; -HYDR10TA4 PO
[2019-12-31 17:22] VITALS: BP 128/80
--- NOTE | 2019-12-31 17:50 | NUR ---
NOT IN LOBBY X 1 @ 1389
[2019-12-31] MEDS ORDERED: ACETAMINOPHEN 325 MG TABLET PO ONE (18:30)
[2019-12-31] MEDS ORDERED: ACETAMINOPHEN 325 MG TABLET ONE (18:45)
== END 2019-12-31 19:05 | disposition home or self-care (01) ==
LOC: ED 18:30
DX: S83.91XA Sprain of unspecified site of right knee, initial encounter (principal); I10 Essential (primary) hypertension; X50.1XXA Overexertion from prolonged static or awkward postures, initial encounter; Y93.01 Activity, walking, marching and hiking; Y92.89 Other specified places as the place of occurrence of the external cause; Y99.8 Other external cause status
CPT/HCPCS: 29505; 99283